=== PATIENT | female | born 1960 | race Caucasian/White ===

== ENCOUNTER 2018-06-23 10:41 | Inpatient (IN) ==
--- NOTE | 2018-05-26 12:30 | PAT Medication Instructions ---
Medication Instructions Date of Service May 26, 2018 Home Medications hydroxychloroquine 200 mg PO BID leflunomide 20 mg PO QAM levetiracetam [Keppra] 750 mg PO QID naproxen sodium [Aleve] 3 tab PO BID potassium chloride 20 meq PO BID pramipexole 0.5 mg PO HS NEEDED spironolactone 50 mg PO QAM ASK your surgeon for instructions naproxen sodium [Aleve] 3 tab PO BID ASK your prescriber and surgeon hydroxychloroquine 200 mg PO BID leflunomide 20 mg PO QAM STOP taking 24 hours before surgery pramipexole 0.5 mg PO TID NEEDED DO NOT take the morning of surgery potassium chloride 20 meq PO BID spironolactone 50 mg PO QAM Take morning of surgery With a small sip of water, OTHERWISE NOTHING TO EAT OR DRINK AFTER MIDNIGHT: levetiracetam [Keppra] 750 mg PO QID Take evening before surgery levetiracetam [Keppra] 750 mg PO QID potassium chloride 20 meq PO BID Other Notes If you have any questions please call us at [phone] or [phone] or [phone] or [phone]
--- NOTE | 2018-05-26 14:35 | Anesthesiology Consultation ---
Date of Service May 26, 2018 Assessment & Plan (1) Encounter for pre-operative examination: Chart Review Chart Review: Acceptable Risk for Surgery and Patient seen in Pre Admission Testing Consults Requested none Teaching & Discussion Pre-Anesthesia Teaching/Discussion Notes: Instructed NPO after midnight before surgery, except medications with 15 cc of water. Medication instructions provided according to the PAT guidelines. History Surgery Operation Date: 06/09/18 07:45 Proposed Procedures p L3-S1 Hardware Removal, L2-L3 Decompression and Fusion - George Cox, Height/Weight Height: 5 ft 5 in Weight: 77.5 kg Allergies Allergy/AdvReac Type Severity Reaction Status Date / Time codeine Allergy Unknown G I UPSET Verified 05/24/18 15:28 cyclobenzaprine Allergy Unknown EXTREME Verified 05/24/18 15:28 DROWSY morphine Allergy Unknown GI upset Verified 05/24/18 15:28 (per PCP note) tramadol Allergy Unknown pruritis Verified 05/24/18 15:28 per PCP note Dust Allergy Unknown DUST,POLLEN-ITCHY Uncoded 05/24/18 15:28 EYES, RUNNY NOSE Medications Home Medications Medication Instructions Recorded Confirmed Last Taken hydroxychloroquine 200 mg PO BID 05/24/18 05/24/18 Unknown leflunomide 20 mg PO QAM 05/24/18 05/24/18 Unknown levetiracetam [Keppra] 750 mg PO QID 05/24/18 05/24/18 Unknown naproxen sodium [Aleve] 3 tab PO BID 05/24/18 05/24/18 Unknown potassium chloride 20 meq PO BID 05/24/18 05/24/18 Unknown pramipexole 0.5 mg PO HS PRN 05/24/18 05/26/18 Unknown spironolactone 50 mg PO QAM 05/24/18 05/24/18 Unknown Past Medical History Medical History Brain aneurysm Being monitored by Neurology in [place] (Dr. Stevens) Chronic back pain ON/OFF RADIATION OF PAIN IN B/L LOWER EXTREMITIES. PT STATES IT HAS IMPROVED SINCE SECOND SURGERY. PAIN IS USUALLY MORE LOCALIZED INTO BACK. Degenerative disc disease Hypokalemia due to loss of potassium PT STATES SHE FOLLOWS WITH [facility] FOR A LOW POTASSIUM LEVEL WITH UNKNOWN ETIOLOGY. PT WAS STARTED ON ALDACTONE AND POTASSIUM SUPPLEMENT FOR TREATMENT. CONTINUES TO MONITOR. Renal cyst FOLLOWED BY [facility]. NO CURRENT INTERVENTION. Rheumatoid arthritis Seizure LAST SEIZURE 2+ YEARS AGO. PT REMAINS ON KEPPRA. 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 Superficial vein thrombosis ~2009 (once only) Past Surgical History Surgical History Fusion of spine x2 2011, 2014. LUMBAR 10/30/14 - MAC #3, ETT #7.0, Grade 1 View History of adenoidectomy History of appendectomy History of bilateral carpal tunnel release History of bilateral tubal ligation History of bowel resection S/T TO DISCOVERY OF A "CLUSTER OF POLYPS" History of cataract surgery B/L History of colonoscopy History of endometrial ablation History of surgery VEIN INJECTIONS FOR VERICOSE VEINS History of tonsillectomy Past Anesthesia History No Hx of Anesthesia Complications and No Family Hx of Anesthesia Complications History of PONV No Motion Sickness Screening History of Motion Sickness: No Social History Smoking Status: Current every day smoker tobacco type: cigarettes Smoking cigarettes per day: HX OF 1 PPD X25 YEARS Do You Dip or Chew Tobacco: No Hx Alcohol Use: No Hx Substance Use: No substance use type: does not use Exercise / Class Metabolic Activity II 4-5 Yardwork/Stairs/Walk up hill (Currently limited due to back pain. Can easily climb FOS without CP or SOB. 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 ) Review of Systems Patient denies chest pain, shortness of breath, dyspnea on exertion, reflux, cough, wheezing, palpitations. +Joint Pain (Back) Physical Exam Vital Signs BP: 116/76 P: 69 R: 16 T: 98.2 SPO2: 96% ENMT Mouth: + dentures (Full set - uppers and lowers ) and + edentulous Thyromental Distance: > or= 3.5 Finger Breadths (3.5) Mallampati Class: I Dentures - Full set - uppers and lowers - wants them to be the last thing taken and then the first thing put back in Neck normal visual inspection and trachea midline Respiratory normal respiratory effort Auscultation: lungs clear to auscultation bilaterally Cardiovascular Rate/Rhythm: regular rate and regular rhythm Heart Sounds: no murmur Vessels: no carotid bruit Neurologic moves all extremities Psychiatric Orientation: alert and oriented x 3 Testing Electrocardiogram Date: 05/26/18 Findings: + NSR @ (66) When compared with EKG from 10/05/14, Non specific T wave abnormality is no longer evident in anterolateral leads. Chest X-Ray Date: 05/26/18 Findings: + cardiomegaly (mild) FINDINGS: Atherosclerosis of the aortic arch. Cardiac silhouette enlarged. Right retrocardiac double density may indicate left atrial enlargement. Lungs mildly hyperinflated. No focal opacity. No pleural effusion or pneumothorax. Degenerative changes of the thoracic spine. Partially visualized lumbar fusion hardware. Upper abdomen normal. IMPRESSION: 1. Mild cardiomegaly. No other convincing evidence of acute cardiopulmonary disease. Cervical Spine Date: 05/26/18 FINDINGS: 3 lateral views of the cervical spine are obtained in the neutral, flexion, and extension positions. No prior studies are for comparison at the time of dictation. The skeletal structures are osteopenic. There is no radiographic evidence of fracture or subluxation on these lateral images. Vertebral body height is maintained throughout the cervical spine. There is minimal retrolisthesis at C3-C4 and C4-C5. Alignment is otherwise preserved. There is no osseous subluxation identified on the flexion/extension views. The atlantodental articulation appears maintained, noting mild productive degenerative change. The spinal laminar line is preserved. The spinous processes are intact. Large anterior osteophytes are seen throughout. There is moderate to advanced disc space narrowing seen at all levels between C3-C4 and C6-C7. Posterior disc osteophyte complexes at these levels likely contribute to mild multilevel acquired compromise of the central canal. The prevertebral soft tissues are normal in appearance. IMPRESSION: 1. No acute bony abnormality is identified involving the cervical spine. 2. Osteopenia and spondylotic change as above. 3. There is no evidence of subluxation on the flexion/extension views. Laboratory Results 05/26/18 14:16 05/26/18 14:16 Blood Type A Positive 05/26/18 14:16 Antibody Screen NEGATIVE 05/26/18 14:16 PT 10.6 Seconds (9.0-12.0) 05/26/18 14:16 INR 1.0 (0.9-1.1) 05/26/18 14:16 APTT 27.1 Seconds (21.0-31.0) 05/26/18 14:16 Urine Color Yellow 05/26/18 14:16 Urine Appearance Clear (Clear) 05/26/18 14:16 Urine pH 5.0 (4.5-7.5) 05/26/18 14:16 Ur Specific Pierz 1.011 (1.000-1.030) 05/26/18 14:16 Urine Protein Negative (Negative) 05/26/18 14:16 Urine Glucose (UA) Negative (Negative) 05/26/18 14:16 Urine Ketones Negative (Negative) 05/26/18 14:16 Urine Nitrite Negative (Negative) 05/26/18 14:16 Ur Leukocyte Esterase Negative (Negative) 05/26/18 14:16
[2018-05-26 15:21] LABS: Basophils # (auto) 0.05 K/uL (0-0.2); Basophils % (auto) 1.2 %; Eosinophils # (auto) 0.18 K/uL (0-0.5); Eosinophils % (auto) 4.2 %; Hematocrit (blood only) 40.9 % (37-47); Hemoglobin 14.1 g/dL (12.0-16.0); Immature Granulocytes # (auto) 0.01 K/uL (0.00-0.02); Immature Granulocytes % (auto) 0.2 %; Lymphocytes # (auto) 1.15 K/uL (1.2-3.4); Lymphocytes % (auto) 27.1 %; Mean Corpuscular Hgb Conc 34.5 g/dL (32-36); Mean Corpuscular Volume 89.5 fL (80-100); Mean Platelet Volume 9.2 fL (7.4-10.4); Monocytes # (auto) 0.58 K/uL (0.11-0.59); Monocytes % (auto) 13.6 %; Neutrophils # (auto) 2.28 K/uL (1.4-6.5); Neutrophils % (auto) 53.7 %; Platelet Count 264 K/uL (130-400); RDW Coefficient of Variation 13.6 % (11.5-14.5); RDW Standard Deviation 44.6 fL (36.4-46.3); Red Blood Count 4.57 M/uL (4.2-5.4); White Blood Count 4.25 K/uL (4.8-10.8)
--- NOTE | 2018-05-26 15:26 | XRay Report ---
XR chest Pre-admission PA/Lat CLINICAL HISTORY: 58 years-old Female presenting with preoperative assessment, asymptomatic. TECHNIQUE: PA and lateral views of the chest were obtained. COMPARISON: 10/05/2014. FINDINGS: Atherosclerosis of the aortic arch. Cardiac silhouette enlarged. Right retrocardiac double density ma y indicate left atrial enlargement. Lungs mildly hyperinflated. No focal opacity. No pleural effusion or pneumothorax. Degenerative changes of the thoracic spine. Partially visualized lumbar fusion hard crabtree. Upper abdomen normal. IMPRESSION: 1. Mild cardiomegaly. No other convincing evidence of acute cardiopulmonary disease. Electronically signed by: Reilly Bullock M.D. 05/26/2018 3:25 PM
[2018-05-26 15:32] LABS: Appearance Urine Clear (Clear); Bilirubin Urine Negative (Negative); Blood Urine Negative (Negative); Color Urine Yellow; Glucose Urine UA Negative (Negative); Ketones Urine Negative (Negative); Leukocyte Esterase Urine Negative (Negative); Nitrite Urine Negative (Negative); Protein Urine Negative (Negative); Specific Gravity Urine 1.011 (1.000-1.030); Urobilinogen Urine Negative (Negative)
[2018-05-26 15:41] LABS: Partial Thromboplastin Time 27.1 Seconds (21.0-31.0); Prothrombin Time 10.6 Seconds (9.0-12.0)
[2018-05-26 15:51] LABS: BUN Creatinine Ratio 14.7 (10-20); Calcium 9.3 mg/dl (8.5-10.1); Creatinine Clr Calc Pharmacy 88.7 ml/min; Est GFR (African American) 107.7; Potassium 4.1 mmol/L (3.5-5.1)
--- NOTE | 2018-05-26 15:57 | XRay Report ---
CERVICAL SPINE 3 VIEWS CLINICAL HISTORY: Rheumatoid arthritis. Preoperative examination. FINDINGS: 3 lateral views of the cervical spine are obtained in the neutral, flexion, and extension p ositions. No prior studies are for comparison at the time of dictation. The skeletal structures are o steopenic. There is no radiographic evidence of fracture or subluxation on these lateral images. Vert ebral body height is maintained throughout the cervical spine. There is minimal retrolisthesis at C3- C4 and C4-C5. Alignment is otherwise preserved. There is no osseous subluxation identified on the fle xion/extension views. The atlantodental articulation appears maintained, noting mild productive degen erative change. The spinal laminar line is preserved. The spinous processes are intact. Large anterio r osteophytes are seen throughout. There is moderate to advanced disc space narrowing seen at all lev els between C3-C4 and C6-C7. Posterior disc osteophyte complexes at these levels likely contribute to mild multilevel acquired compromise of the central canal. The prevertebral soft tissues are normal i n appearance. IMPRESSION: 1. No acute bony abnormality is identified involving the cervical spine. 2. Osteopenia and spondylotic change as above. 3. There is no evidence of subluxation on the flexion/extension views. Dictated: 05/26/2018 3:24 PM Transcribed: 05/26/2018 3:57 PM Yelena [id number] [email or web address] Electronically signed by: Mauricio Rankin M.D. 05/26/2018 3:58 PM
[~2018-06-23 10:41] MED LIST: ACETAMINOPHEN 500 MG TAB PO SCH; CEFAZOLIN 1000MG 1,000 MG/7.5 ML SYR IV SCH; CeleBREX 200 MG CAP PO SCH; GABAPENTIN 300 MG x 2 PO SCH; LR 15ML/HR IV SCH
--- OUTSIDE RECORDS SUMMARY | 2018-06-23 10:45 | External Medical Summary | Continuity of Care Document ---
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) Arthritis, rheumatoid (714.0) (M06.9) Back disorder (724.9) (M53.9) Carpal tunnel syndrome (354.0) (G56.00) Cataract (366.9) (H26.9) Convulsions (780.39) (R56.9) Dermatitis (692.9) (L30.9) Deviated nasal septum (470) (J34.2) Dyslipidemia, goal LDL below 130 (272.4) (E78.5) Female infertility (628.9) (N97.9) Generalized osteoarthritis (715.00) (M15.9) Hypopotassemia (276.8) (E87.6) Restless legs syndrome (333.94) (G25.81) Sensorineural hearing loss (389.10) (H90.5) Sprain of knee and leg (844.9) (S83.90XA) Tobacco use disorder (305.1) (F17.200) Varicose vein of leg (454.9) (I83.90) Hypokalemia (276.8) (E87.6) Renal cyst, right (753.10) (N28.1) Allergies and Adverse Reactions Codeine Derivatives (Allergy) Reaction: Nausea, Vomiting Flexeril TABS (Allergy) Reaction: Other Morphine Derivatives (Allergy) Reaction: Gatrointestinal upset Ultram TABS (Allergy) Reaction: Itching Medications Leflunomide 20 MG Oral Tablet; take 1 tablet by mouth once d aily Refills: 0 levETIRAcetam 750 MG Oral Tablet; TAKE 1 TABLET BY MOUTH 4 T IMES A DAY Refills: 0 Pramipexole Dihydrochloride 0.5 MG Oral Tablet; TAKE 1 TABLET BY MOUTH AT BEDTIME NEEDED Refills: 0 Hydroxychloroquine Sulfate 200 MG Oral T ablet; TAKE 1 TABLET BY MOUTH 2 TIMES A DAY Refills: 0 Potassium Chloride ER 10 MEQ Oral Tablet Extended Release; TAKE 1 TABLET BY MOUTH TWICE DAILY. Jamison Coats Quantity: 60 Refills: 0 Aleve 220 MG Oral Tablet; TAKE 3 TABLETS TWICE DAILY Refills: 0 Spironolactone 100 MG Oral Tablet; TAKE 1 TABLET DAILY. Jamison Siu Start: 21-May-2018 Quantity: 1 30 Tablet Bottle Refills: 3 Procedures Renal Panel Date: 03-Jun-2018 Immunizations Immunizations not documented Family History Father Family history of cardiac disorder (V17.49) (Z82.49) Status: Active Family history of malignant neoplasm (V16.9) (Z80.9) Status: Active Grandfather Family history of cardiac disorder (V17.49) (Z82.49) Status: Active Grandfather Family history of cardiac disorder (V17.49) (Z82.49) Status: Active Family history of congestive heart failure (V17.49) (Z82.49) Status: Active Grandmother Family history of cardiac disorder (V17.49) (Z82.49) Status: Active Family history of colonic polyps (V18.51) (Z83.71) Status: A ctive Family history of cerebrovascular accident (CVA) (V17.1) (Z8 2.3) Status: Active uncle Family history of malignant neoplasm of colon (V16.0) (Z80.0 ) Status: Active Social History - Smoking Status Current every day smoker Plan of Treatment Planned Encounters Appointment; Ely Coats M.D. Start: 02-Jul-2018 15:30 Request Planned Observations Planned Goals not documented Results Renal Panel Laboratory: [facility] [address] [facility] [id number] tel: 01-Jun-2018 10:44 SODIUM 139 mmol/L Range: 136-145 mmol /L POTASSIUM 4.3 mmol/L Range: 3.5-5.1 mmo l/L CHLORIDE 110 mmol/L (above high Range: 98-107 mmol/L threshold) CARBON DIOXIDE 25 mmol/L Range: 21-32 m mol/L ANION GAP 5.0 Range: 3-11 BLOOD UREA NITROGEN 17 mg/dl Range: 7-1 8 mg/dl CREATININE 0.77 mg/dl Range: 0.6-1.2 mg /dl Estimated GFR () 99.3 Co mments: Units: ml/min per 1.73 meters squaredT he estimated GFR (CKD-E PI equation) has not be en validatedfor inpatie nt settings and may not be an accurate reflectiono f renal function in critical ly ill patients or those wi thrapidly changing renal funct ion (e.g. ARNULFO). Estimated GFR (Non-) Com ments: Units: ml/min per 85.7 1.73 meters squaredT he estimated GFR (CKD-E PI equation) has not be en validatedfor inpatie nt settings and may not be an accurate reflectiono f renal function in critical ly ill patients or those wi thrapidly changing renal funct ion (e.g. ARNULFO). BUN/CREATININE RATIO 21.8 (above high Ra nge: 10-20 threshold) GLUCOSE 90 mg/dl Range: 70-99 mg/dl CALCIUM 9.4 mg/dl Range: 8.5-10.1 mg/ dl PHOSPHORUS 2.9 mg/dl Range: 2.5-4.9 mg/ dl ALBUMIN 3.6 {gm/dl} Range: 3.4-5.0 gm/d l Vital Signs 03-Jun-2018 9:53 Systolic 118 mm[Hg] Comments: Location: RUE; Position: Sitting Diastolic 80 mm[Hg] Comments: Location: RUE; Position: Sitting BSA Calculated 1.84 m2 BMI Calculated 28.12 kg/m2 Weight 169 lb Heart Rate 82 /min Comments: Location: R Radial; Encounters Appointment; Ely Coats M.D. 03-Jun-2018 9:45 Encounter Diagnosis: Problem not documented Appointment; Ely Coats M.D. 21-May-2018 10:30 Encounter Diagnosis: Problem not documented Appointment; Ely Coats M.D. 14-May-2018 14:10 Encounter Diagnosis: Problem not documented Appointment; Ely Coats M.D. 02-Jul-2018 15:30 Encounter Diagnosis: Problem not documented
[2018-06-23] MEDS: LR 15ML/HR IV SCH ×2 (11:32→11:50)
[2018-06-23] MEDS ORDERED: ATROPINE SULFATE 0.1 MG/ML 10ML SYR IV PRN (11:38)
[2018-06-23] MEDS ORDERED: ePHEDrine sulfate 50 MG/ML AMP IV PRN (11:38)
--- NOTE | 2018-06-23 11:51 | History & Physical Bridge Note ---
Date of Service June 23, 2018 History & Physical Bridge Note I have examined the patient, reviewed the History & Physical and in the interval since the performance of the History & Physical I have noted the following changes of clinical significance: no changes noted
--- NOTE | 2018-06-23 11:53 | History & Physical Report ---
Date of Service June 23, 2018 Assessment & Plan (1) Lumbar stenosis with neurogenic claudication: Removal of instrumentation L3-S1 decompression fusion L2-L3 Present on Admission?: Yes History of Present Illness Chief Complaint: Back and leg pain Primary Care Provider: Kiana Ortiz MD Presents with chronic persistent back and leg pain. After failing extensive course of nonoperative care she is here for surgical intervention. Allergies Allergy/AdvReac Type Severity Reaction Status Date / Time codeine Allergy Unknown G I UPSET Verified 06/23/18 11:01 cyclobenzaprine Allergy Unknown EXTREME Verified 06/23/18 11:01 DROWSY morphine Allergy Unknown GI upset Verified 06/23/18 11:01 (per PCP note) tramadol Allergy Unknown pruritis Verified 06/23/18 11:01 per PCP note Dust Allergy Unknown DUST,POLLEN-ITCHY Uncoded 06/23/18 11:01 EYES, RUNNY NOSE Home Medications Home Medications Medication Instructions Recorded Confirmed Type hydroxychloroquine 200 mg PO BID 05/24/18 06/23/18 History leflunomide 20 mg PO QAM 05/24/18 06/23/18 History levetiracetam [Keppra] 750 mg PO QID 05/24/18 06/23/18 History naproxen sodium [Aleve] 3 tab PO BID 05/24/18 06/23/18 History potassium chloride 20 meq PO BID 05/24/18 06/23/18 History pramipexole 0.5 mg PO HS PRN 05/24/18 06/23/18 History spironolactone 50 mg PO QAM 05/24/18 06/23/18 History Past Med/Surg History Social History Preferred Language: Polish Communication Ability: Effective Bobbin Collector Required: No Beliefs That Will Affect Care: None Current Living Situation: Spouse Other Information That Helps Us Care for You: No Feels Safe at Home: Yes Safety Concerns: Feels Safe At This Time Smoking Status: Current every day smoker Tobacco Type: cigarettes Cigarettes Per Day: HX OF 1 PPD X25 YEARS Do You Dip or Chew Tobacco: No Second Hand Exposure: No Tobacco Cessation Education Requested by Patient: No Hx Alcohol Use: No Hx Substance Use: No Physical Exam Vital Signs (Past 24 Hours): Last Vital Signs Temp 36.8 C 06/23/18 11:02 Pulse 79 06/23/18 11:02 Resp 20 06/23/18 11:02 BP 109/68 06/23/18 11:02 Pulse Ox 97 06/23/18 11:02 Physical Exam: Patient is neurologically intact to testing lower extremities but no obvious distress.
[2018-06-23] MEDS ORDERED: BACITRACIN INJ 50,000 UNIT VIAL ONE (12:04)
[2018-06-23] MEDS ORDERED: BUPIVACAINE/EPINEPHRINE 0.5% MPF 1:200,000 30 ML VIAL ONE (12:04)
[2018-06-23] MEDS ORDERED: NEOSTIGMINE METHYLSULFATE 1 MG/ML 10ML VIAL ONE (12:09)
[2018-06-23] MEDS ORDERED: GLYCOPYRROLATE 0.2 MG/ML VIAL ONE (12:09)
[2018-06-23] MEDS ORDERED: fentaNYL citrate 100 MCG/2 ML VIAL ONE ×2 (12:09→13:56)
[2018-06-23] MEDS ORDERED: LIDOCAINE HCL 2% 2 ML VIAL/AMP(20MG/ML) INFIL ONE (12:09)
[2018-06-23] MEDS ORDERED: DEXAMETHASONE SOD INJ 4 MG/ML VIAL ONE (12:09)
[2018-06-23] MEDS ORDERED: PROPOFOL IV EMULSION 10 MG/ML 20 ML VIAL IV ONE (12:09)
[2018-06-23] MEDS ORDERED: ROCURONIUM BROMIDE 10 MG/ML 5 ML VIAL ONE (12:09)
[2018-06-23] MEDS ORDERED: ONDANSETRON INJ 2 MG/ML 2 ML VIAL ONE (12:09)
[2018-06-23] MEDS ORDERED: MIDAZOLAM HCL 1 MG/ML 2ML VIAL ONE (12:09)
[2018-06-23] MEDS ORDERED: CEFAZOLIN 1000MG 1,000 MG/7.5 ML SYR IV ONE (12:48)
[2018-06-23] MEDS ORDERED: CEFAZOLIN 250 MG/ML 1 GM VIAL ONE (12:49)
[2018-06-23] MEDS ORDERED: FLOSEAL HEMOSTATIC MATRIX 10ML TOP ONE (13:09)
--- NOTE | 2018-06-23 14:16 | Operative Report ---
Post Operative Report Pre & Post Diagnosis Operation Date: 06/23/18 12:05 Pre-Op Diagnosis: Lumbar stenosis with neurogenic claudication Post-Op Diagnosis: Lumbar stenosis with neurogenic claudication Procedure Operation Date: 06/23/18 12:05 Actual Procedures #1 removal of posterior segmental instrumentation L3-S1. #2 expiration of fusion L3-S1 per #3 lumbar decompression with bilateral medial facetectomies and foraminotomies L1-L2 3. #4 posterior spinal fusion L2-3. #5 placement posterior instrumentation L2-3. #6 interbody fusion L2-3. #7 placement of peek cage 9 x 22 mm L2-3. #8 spent of local autograft in the posterior lateral gutters per #9 placement infuse collagen sponge bone mass graft in the posterior lateral gutters and ostial amp in the interbody space. Surgeon George Cox, [employer] Incident Responder Kymberly Pérez Estimated Blood Loss 100 Findings Consistent with Post-Op Diagnosis Specimens None Indications This is a 58-year-old female well-known to me that presents with the above- mentioned diagnosis. After failing extensive course of nonoperative care she is here for the above-mentioned surgery. Description of Procedure Patient was met with identified and informed consent obtained. Patient was then taken to the operative suite underwent intubation and placed in a prone position the Andrea table on top of the Zachary frame. All bony prominences well-padded eyes inspected to ensure no external pressure placed upon the peer at this point the lumbar spine was prepped and draped in a normal sterile fashion. Sharp dissection with the assistance of Bovie cautery was performed down to and exposing the lamina transverse processes of L2 and the instrumentation at L3-L4 and S1 levels bilaterally. Then proceed remove the hardware bilaterally explore the fusion mass noting to be intact. Then performed a complete laminectomy of L2 partial laminectomy fill one including bilateral medial facetectomies and foraminotomies addressing severe stenosis. Pedicle screws were then placed in L2 and L3 bilaterally with assistance of fluoroscopy and by way of a transforaminal approach and left complete discectomy was performed in pledget created to subcortical bleeding bone and a 9 x 22 mm peek cage filled with osteo-amp bone graft tapped in position. The rods were then locked in final position bilaterally. Transverse processes of L2 and L3 burred to subcortical bleeding bone. Infuse collagen sponge mass graft local autograft placed in the posterior lateral gutters. 15 round DESHAWN drain inserted. The incision was then closed with 1 Vicryl fascia 2-0 Vicryl subcutaneously and 4-0 Monocryl for final skin closure. Steri-Strip sterile dressings placed. Patient will continue to PACU stable condition. Please note Kymberly Pérez present at the entire procedure involved the patient positioning closure. Lastly spinal cord monitoring was utilized throughout the procedure and no changes were noted. I attest to the content of the Intraoperative Record and any orders documented therein. Any exceptions are noted below.
--- NOTE | 2018-06-23 14:42 | Fluoroscopy Report ---
FL lumbar spine 2-3V CLINICAL HISTORY: L3-S1 HARDWARE REMOVAL, L2-L3 DECOM/FUSION COMPARISON STUDY: 10/30/2014 FLUOROSCOPY TIME: The second. NUMBER OF FLUOROSCOPIC IMAGES: 2 FINDINGS: There is been interval removal of the L4, and probably the S1 pedicle screws. There is evid ence for interval discectomy and interbody fusion at the L2-3 level. There are L2 and L3 pedicle scre ws with adjoining spinal rods. There is minimal retrolisthesis of L2 on L3. IMPRESSION: Postsurgical changes as described above. Electronically signed by: Diego Spangler M.D. 06/23/2018 2:41 PM
[2018-06-23] MEDS: HYDROmorphone INJ 1 MG/ML SYRINGE IV PRN ×4 (14:52→15:12)
--- NOTE | 2018-06-23 15:55 | Anesthesiology Progress Note ---
Date of Service June 23, 2018 Anesthesia Post Procedure Vital Signs Vital Signs: Temp Pulse Resp BP Pulse Ox 06/23/18 15:40 57 L 16 101/63 93 06/23/18 15:25 36.5 C 58 L 16 119/71 94 06/23/18 15:15 59 L 16 125/71 94 06/23/18 15:05 69 16 141/82 H 96 06/23/18 14:55 66 16 128/75 99 06/23/18 14:45 70 16 128/82 99 06/23/18 14:35 36.1 C L 83 16 119/71 99 06/23/18 11:02 36.8 C 79 20 109/68 97 Pain Intensity Medial Back: Pain Intensity: 2 Transfer of Care Handoff Completed per policy Notes Mental Status: alert / awake / arousable Patient Amnestic to Procedure: Yes Nausea / Vomiting: adequately controlled Pain: adequately controlled Airway Patency, RR, SpO2: stable & adequate BP & HR: stable & adequate Hydration State: stable & adequate Anesthetic Complications: no major complications apparent
[2018-06-23] MEDS ORDERED: ALUMINUM/MAGNESIUM SUSP 30 ML UDC PO PRN (16:22)
[2018-06-23] MEDS ORDERED: OXYCODONE HCL IR 5 MG TAB (IMMEDIATE RELEASE) PO PRN (16:22)
[2018-06-23] MEDS ORDERED: FAMOTIDINE 20 MG TAB PO PRN (16:22)
[2018-06-23] MEDS ORDERED: PROMETHAZINE HCL 12.5 MG in SODIUM CHLORIDE 0.9% 50 ML IV PRN (16:22)
[2018-06-23] MEDS ORDERED: DO NOT ADMINISTER FLU VACCINE PRN (16:22)
[2018-06-23] MEDS ORDERED: HYDROmorphone INJ 0.5 MG/0.5 ML SYR IV PRN (16:22)
[2018-06-23] MEDS ORDERED: ACETAMINOPHEN 1,000 MG/100 ML VIAL IV PRN (16:22)
[2018-06-23] MEDS ORDERED: LORazepam 0.5 MG TAB PO PRN (16:22)
[2018-06-23] MEDS ORDERED: MAGNESIUM HYDROXIDE SUSP 30 ML UDC PO PRN (16:22)
[2018-06-23] MEDS ORDERED: ONDANSETRON 4 MG TAB PO PRN (16:22)
[2018-06-23] MEDS ORDERED: PRAMIPEXOLE DIHYDROCHLO 0.5 MG TAB PO PRN (16:22)
[2018-06-23] MEDS ORDERED: LORazepam 0.5 MG/1 ML VIAL IV PRN (16:22)
[2018-06-23] MEDS ORDERED: DO NOT ADMINISTER PNEUMOCOCCAL VACCINE PRN (16:22)
[2018-06-23] MEDS ORDERED: BISACODYL 10 MG SUPP PR PRN (16:22)
[2018-06-23] MEDS ORDERED: METOCLOPRAMIDE HCL INJ 5 MG/ML 2 ML VIAL IV PRN (16:22)
[2018-06-23] MEDS ORDERED: ONDANSETRON INJ 2 MG/ML 2 ML VIAL IV PRN (16:22)
[2018-06-23] MEDS ORDERED: SOD PHOSPHATE/SOD BIPHOSPHATE ENEMA 132 ML BTL PR PRN (16:22)
--- NOTE | 2018-06-23 17:16 | Consultation ---
Date of Consultation June 23, 2018 Assessment & Plan (1) Lumbar stenosis with neurogenic claudication: S/P L3-S1 hardware removal and L2-[address] lumbar decomp[address] fusion by Dr. Cox POD #0 EBL 100 mL Patient tolerated procedure well Pain/wound management per Ortho Activity and therapies as directed by Ortho VTE prophylaxis per Ortho Monitor CBC for ABL anemia (2) Seizure: Last seizure greater than 2 years ago No seizure-like activity Continue Keppra (3) Rheumatoid arthritis: Continue Plaquenil and leflunomide (4) Hypokalemia: Continue Aldactone and KCl supplementation Monitor BMP, preop K 4.3 Patient follows [facility] nephrology (5) Chronic back pain: s/p lumbar fusion/decompression Follows pain management ortho for inpatient pain control (6) Tobacco abuse: Encourage smoking cessation Offered nicotine patch but declined (7) DVT prophylaxis: SCDs, per Ortho Disposition: Per primary Follow-up: PCP Dr. Kiana Ortiz Patient was seen and examined in collaboration with Dr. Bradshaw, please see addendum Starting 06/24/18 patient will be under the care of Dr. Mitchell Thank you for this consultation. We will follow the patient with you during their hospital stay. You can reach a member of the [facility] Hospitalist Team 08/09 via pager @ [phone]. Supervising Physician Co-Signing Physician Notes I have seen and examined the patient and have discussed the case with the provider above. I agree with the assessment and plan as stated with the following exceptions. Ms. Faustin is excited that her nerve pain is resolved and has ambulated some around the hallways post-op today. Her pain is controlled and she denies any acute issues. Exam was within normal limits, and she is hemodynamically stable. Cont home meds as above. DO Augustine History of Present Illness Requesting Physician: Dr. Cox Reason for Consultation: Postoperative medical management Attending Physician: George Cox DO History of Present Illness This is a 58-year-old female who has a significant PMH of seizure disorder, rheumatoid arthritis, HLD, tobacco abuse, hypokalemia, RLS, right ICA aneurysm follows [facility] surgery who presents to [facility] for elective lumbar procedure by Dr. Cox. Patient has known history of lumbar spinal stenosis with neurogenic claudication. She has undergone 2 prior lumbar surgeries. She presents today for removal of hardware L3-S1 and L2-3 decompression fusion. She tolerated the procedure well and is complaining of lumbar incisional discomfort. She denies any fever, chills, sweats, lightheadedness, dizziness, chest pain, shortness of breath palpitations, nausea, vomiting, diarrhea, abdominal pain. She currently has a Piper catheter in place. She has not passed gas. She complains of being "drowsy from surgery. Has not had anything to eat or drink since surgery but overall feels she has a good appetite. Allergies Allergy/AdvReac Type Severity Reaction Status Date / Time house dust Allergy Intermediate DUST,POLLEN-ITCHY Verified 06/23/18 18:53 EYES, RUNNY NOSE codeine AdvReac Mild G I UPSET Verified 06/23/18 18:53 cyclobenzaprine AdvReac Mild EXTREME Verified 06/23/18 18:53 DROWSY morphine AdvReac Mild GI upset Verified 06/23/18 18:53 (per PCP note) tramadol AdvReac Mild pruritis Verified 06/23/18 18:53 per PCP note Home Medications Home Medications Medication Instructions Recorded Confirmed Type hydroxychloroquine 200 mg PO BID 05/24/18 06/23/18 History leflunomide 10 mg PO QAM 05/24/18 06/23/18 History levetiracetam [Keppra] 750 mg PO QID 05/24/18 06/23/18 History naproxen sodium [Aleve] 3 tab PO BID 05/24/18 06/23/18 History potassium chloride 20 meq PO BID 05/24/18 06/23/18 History pramipexole 0.5 mg PO HS PRN 05/24/18 06/23/18 History spironolactone 50 mg PO QAM 05/24/18 06/23/18 History Patient History Medical History Superficial vein thrombosis ~2009 (once only) Seizure LAST SEIZURE 2+ YEARS AGO. PT REMAINS ON KEPPRA. 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 Chronic back pain ON/OFF RADIATION OF PAIN IN B/L LOWER EXTREMITIES. PT STATES IT HAS IMPROVED SINCE SECOND SURGERY. PAIN IS USUALLY MORE LOCALIZED INTO BACK. Degenerative disc disease Renal cyst FOLLOWED BY [facility] NEPHRO. NO CURRENT INTERVENTION. Hypokalemia due to loss of potassium PT STATES SHE FOLLOWS WITH [facility] NEPHROLOGY FOR A LOW POTASSIUM LEVEL WITH UNKNOWN ETIOLOGY. PT WAS STARTED ON ALDACTONE AND POTASSIUM SUPPLEMENT FOR TREATMENT. CONTINUES TO MONITOR. Rheumatoid arthritis Brain aneurysm Being monitored by Neurology in [place] (Dr. Stevens) Right ICA aneurysm gets yearly MRAs Surgical History Fusion of spine x2 2011, 2014. LUMBAR //15 - MAC #3, ETT #7.0, Grade 1 View History of surgery VEIN INJECTIONS FOR VERICOSE VEINS History of bowel resection S/T TO DISCOVERY OF A "CLUSTER OF POLYPS" History of colonoscopy History of appendectomy History of endometrial ablation History of bilateral tubal ligation History of adenoidectomy History of tonsillectomy History of cataract surgery B/L History of bilateral carpal tunnel release Social History Preferred Language: Maori Communication Ability: Effective Account Retention Representative Required: No Beliefs That Will Affect Care: None Current Living Situation: Spouse Other Information That Helps Us Care for You: No Feels Safe at Home: Yes Safety Concerns: Feels Safe At This Time Smoking Status: Current every day smoker Tobacco Type: cigarettes Cigarettes Per Day: HX OF 1 PPD X25 YEARS Do You Dip or Chew Tobacco: No Second Hand Exposure: No Tobacco Cessation Education Requested by Patient: No Hx Alcohol Use: No Hx Substance Use: No Review of Systems Review of Systems: As noted per HPI, 10 systems reviewed and negative unless noted above. Physical Exam Physical Exam: Gen: WD/WN, F, NAD, sitting up in bed, pleasant, conversing easily Head: Normocephalic, Atraumatic Eyes: Sclera normal, no conjunctival injection, PERRLA, EOMI ENT: Gross hearing intact, normal pharynx, mucous membranes moist Neck: supple, no adenopathy, No JVD, no bruit, Resp: Clear to auscultation b/l, no wheeze, rales, rhonchi. Normal insp/exp effort, no accessory muscle use, on O2 via NC CV: Regular rate, regular rhythm, no murmur, rub, gallop, or ectopy Abd: +BS x 4, soft, nontender, nondistended Musculoskeletal: moves extremities active rom x 4, strength intact, good gem carver strength Extremities: No edema bilaterally, SCDS in place Skin: warm, moist, no rash, negative turgor, cap refill < 2sec, Lumbar dressing CDI, DESHAWN Drain with serosanginous output Neuro: Alert and oriented x 3, speech normal, good mood/affect, cran nerve 2-12 intact grossly : +piper draining clear yellow urine Results & Data Vital Signs (Past 12 Hours) Vital Signs Temp Pulse Pulse Resp BP BP Pulse Ox 06/23/18 16:24 36.5 C 60 16 110/68 96 06/23/18 16:10 56 L 14 100/58 L 94 06/23/18 15:55 56 L 16 98/53 L 93 06/23/18 15:40 57 L 16 101/63 93 06/23/18 15:25 36.5 C 58 L 16 119/71 94 06/23/18 15:15 59 L 16 125/71 94 06/23/18 15:05 69 16 141/82 H 96 06/23/18 14:55 66 16 128/75 99 06/23/18 14:45 70 16 128/82 99 06/23/18 14:35 36.1 C L 83 16 119/71 99 06/23/18 11:02 36.8 C 79 20 109/68 97 Laboratory Results Preoperative lab work includes: CBC hemoglobin 14.1, hematocrit 40.9, WBC 4, platelet 264 BMP: Sodium 139, potassium 4.3, BUN 17, creatinine 0.77, glucose 90 Diagnostic Findings Chest x-ray: IMPRESSION: 1. Mild cardiomegaly. No other convincing evidence of acute cardiopulmonary disease. Last echocardiogram 06/18/2011: LVEF 55 to 59% Medications Administered Discontinued Medications Acetaminophen (Tylenol) 1,000 mg PO PREOP MARCELA Stop: 06/23/18 18:00 Last Admin: 06/23/18 11:31 Dose: 1,000 mg Documented by: [id number] Bacitracin (Bacitracin) Confirm Administered Dose 50,000 units .ROUTE .STK-MED ONE Stop: 06/23/18 12:05 Last Admin: 06/23/18 13:08 Dose: 50,000 units Documented by: [id number] Bupivacaine HCl/Epinephrine Bitart (Sensorcaine/Epinephrine 0.5% Mpf 1:200,000) Confirm Administered Dose 30 ml .ROUTE .STK-MED ONE Stop: 06/23/18 12:05 Last Admin: 06/23/18 13:09 Dose: 30 ml Documented by: [id number] Celecoxib (Celebrex) 200 mg PO PREOP MARCELA Stop: 06/23/18 18:00 Last Admin: 06/23/18 11:31 Dose: 200 mg Documented by: [id number] Gabapentin (Neurontin) 600 mg PO PREOP MARCELA Stop: 06/23/18 18:00 Last Admin: 06/23/18 11:30 Dose: 600 mg Documented by: [id number] Hydromorphone HCl (Dilaudid) 0.25 mg IV Q5M PRN PRN Reason: PACU Use Only-Pain Stop: 06/23/18 16:39 Last Admin: 06/23/18 15:12 Dose: 0.25 mg Documented by: [id number] Admin: 06/23/18 15:06 Dose: 0.25 mg Documented by: [id number] Admin: 06/23/18 15:01 Dose: 0.25 mg Documented by: [id number] Admin: 06/23/18 14:52 Dose: 0.25 mg Documented by: [id number] Lactated Ringer's (Lr) 1,000 mls @ 15 mls/hr IV .Q24H MARCELA Stop: 06/24/18 05:59 Last Infusion: 06/23/18 12:20 Dose: 0 mls/hr Documented by: [id number] Admin: 06/23/18 11:50 Dose: 15 mls/hr Documented by: [id number] Cefazolin Sodium (Ancef 1000mg) 1,000 mg in 7.5 mls @ 2.5 mls/min IV PREOP MARCELA; Protocol Stop: 06/23/18 18:00 Last Admin: 06/23/18 12:20 Dose: 2.5 mls/min Documented by: [id number] Cefazolin Sodium (Ancef 1000mg) 1,000 mg in 7.5 mls @ 2.5 mls/min IV ONCE ONE Stop: 06/23/18 12:50 Last Admin: 06/23/18 12:45 Dose: 2.5 mls/min Documented by: [id number] Miscellaneous (Floseal Hemostatic Matrix 10ml) 10 ml TOP ONCE ONE Stop: 06/23/18 13:10 Last Admin: 06/23/18 14:13 Dose: 18 ml Documented by: [id number]
[2018-06-23] MEDS: levETIRAcetam 250 MG TAB PO SCH ×2 (17:42→21:04)
[2018-06-23] MEDS: LACTATED RINGER'S 1,000 ML IV SCH ×2 (17:43→23:48)
[2018-06-23] MEDS: KETOROLAC TROMETHAMINE 15 MG/ML VIAL IV SCH (20:45)
[2018-06-23] MEDS: DOCUSATE SODIUM/SENNA 50/8.6MG TAB PO SCH (20:49)
[2018-06-23] MEDS: HYDROXYCHLOROQUINE SULFATE 200 MG TAB PO SCH (20:50)
[2018-06-23] MEDS: POTASSIUM CHLORIDE 20 MEQ TABCR PO SCH (20:51)
[2018-06-23] MEDS: CEFAZOLIN 2000MG 2,000 MG/15 ML SYR IV SCH (21:04)
[2018-06-23] MEDS ORDERED: Nursing to Pharmacy Communication ONE (21:06)
[2018-06-24] MEDS: KETOROLAC TROMETHAMINE 15 MG/ML VIAL IV SCH ×3 (02:17→13:24)
[2018-06-24] MEDS: CEFAZOLIN 2000MG 2,000 MG/15 ML SYR IV SCH (05:30)
[2018-06-24] MEDS: POLYETHYLENE (MIRALAX) 17 GM PACK PO SCH ×4 (05:30→23:19)
[2018-06-24 06:15] LABS: Basophils # (auto) 0.01 K/uL (0-0.2); Basophils % (auto) 0.1 %; Hematocrit (blood only) 32.4 % (37-47); Hemoglobin 11.8 g/dL (12.0-16.0); Immature Granulocytes # (auto) 0.03 K/uL (0.00-0.02); Immature Granulocytes % (auto) 0.3 %; Lymphocytes # (auto) 0.88 K/uL (1.2-3.4); Lymphocytes % (auto) 9.8 %; Mean Corpuscular Hgb Conc 36.4 g/dL (32-36); Mean Corpuscular Volume 85.3 fL (80-100); Mean Platelet Volume 8.3 fL (7.4-10.4); Monocytes % (auto) 14.5 %; Neutrophils # (auto) 6.73 K/uL (1.4-6.5); Neutrophils % (auto) 75.3 %; Platelet Count 239 K/uL (130-400); RDW Coefficient of Variation 13.4 % (11.5-14.5); RDW Standard Deviation 41.7 fL (36.4-46.3); White Blood Count 8.95 K/uL (4.8-10.8)
[2018-06-24 06:52] LABS: BUN Creatinine Ratio 17.1 (10-20); Calcium 8.6 mg/dl (8.5-10.1); Creatinine Clr Calc Pharmacy 87.5 ml/min; Est GFR (Non-African American) 91.4; Potassium 4.2 mmol/L (3.5-5.1)
--- NOTE | 2018-06-24 08:04 | Anesthesiology Progress Note ---
Date of Service June 24, 2018 Anesthesia Post Procedure Vital Signs Vital Signs: Temp Pulse Pulse Pulse Resp BP BP 06/24/18 07:12 36.7 C 59 L 16 92/54 L 06/24/18 03:39 36.7 C 64 14 107/62 06/23/18 23:35 36.4 C L 56 L 14 96/58 L 06/23/18 21:12 68 115/72 06/23/18 19:30 36.6 C 60 16 95/57 L 06/23/18 18:22 36.6 C 59 L 16 95/60 L 06/23/18 16:50 36.4 C L 66 16 97/60 L 06/23/18 16:24 36.5 C 60 16 110/68 06/23/18 16:10 56 L 14 100/58 L 06/23/18 15:55 56 L 16 98/53 L 06/23/18 15:40 57 L 16 101/63 06/23/18 15:25 36.5 C 58 L 16 119/71 06/23/18 15:15 59 L 16 125/71 06/23/18 15:05 69 16 141/82 H 06/23/18 14:55 66 16 128/75 06/23/18 14:45 70 16 128/82 06/23/18 14:35 36.1 C L 83 16 119/71 06/23/18 11:02 36.8 C 79 20 109/68 Pulse Ox 06/24/18 07:12 92 06/24/18 03:39 92 06/23/18 23:35 94 06/23/18 21:12 06/23/18 19:30 97 06/23/18 18:22 96 06/23/18 16:50 96 06/23/18 16:24 96 06/23/18 16:10 94 06/23/18 15:55 93 06/23/18 15:40 93 06/23/18 15:25 94 06/23/18 15:15 94 06/23/18 15:05 96 06/23/18 14:55 99 06/23/18 14:45 99 06/23/18 14:35 99 06/23/18 11:02 97 Pain Intensity Medial Back: Pain Intensity: 1 Notes Mental Status: alert / awake / arousable and participated in evaluation Patient Amnestic to Procedure: Yes Nausea / Vomiting: adequately controlled Pain: adequately controlled Airway Patency, RR, SpO2: stable & adequate BP & HR: stable & adequate Hydration State: stable & adequate Anesthetic Complications: no major complications apparent and Pt Satisfied with anesthetic care
--- NOTE | 2018-06-24 08:28 | Orthopedic Progress Note ---
Date of Service June 24, 2018 Assessment & Plan (1) Lumbar stenosis with neurogenic claudication: This time we will continue physical therapy advance her bowel regimen anticipate discharge home next few days. Present on Admission?: Yes Subjective Back pain is controlled leg symptoms markedly improved. Physical Exam Physical Exam: Patient has good strength testing appears comfortable. Results & Data Vital Signs (Past 12 Hours) Vital Signs Temp Pulse Pulse Resp BP BP Pulse Ox 06/24/18 07:12 36.7 C 59 L 16 92/54 L 92 06/24/18 03:39 36.7 C 64 14 107/62 92 06/23/18 23:35 36.4 C L 56 L 14 96/58 L 94 06/23/18 21:12 68 115/72
[2018-06-24] MEDS ORDERED: SPIRONOLACTONE 25 MG TAB PO SCH (09:00)
[2018-06-24] MEDS ORDERED: NON-FORMULARY MEDICATION (Leflunomide 20 MG) PO SCH (09:00)
[2018-06-24] MEDS: POTASSIUM CHLORIDE 20 MEQ TABCR PO SCH ×2 (09:22→20:57)
[2018-06-24] MEDS: LEFLUNOMIDE 10 MG TAB PO SCH (09:22)
[2018-06-24] MEDS: HYDROXYCHLOROQUINE SULFATE 200 MG TAB PO SCH ×2 (09:22→20:57)
[2018-06-24] MEDS: levETIRAcetam 250 MG TAB PO SCH ×4 (09:23→20:56)
--- NOTE | 2018-06-24 09:50 | Hospitalist Progress Note ---
Date of Service June 24, 2018 Assessment & Plan (1) Lumbar stenosis with neurogenic claudication: S/P L3-S1 hardware removal and L2-3 lumbar decompression fusion by Dr. Cox POD #1 EBL 100 mL; DESHAWN drain 430ml Patient tolerated procedure well Pain/wound management per Ortho Activity and therapies as directed by Ortho VTE prophylaxis per Ortho Monitor CBC for ABL anemia (2) Acute blood loss anemia: H/H 11.8 and 32.4 pre op 14.1/40.9 monitor cbc (3) Seizure: Last seizure greater than 2 years ago No seizure-like activity Continue Keppra (4) Rheumatoid arthritis: Continue Plaquenil and leflunomide (5) Hypokalemia: Hold aldactone today given SBP < 100 but continue KCl supplementation; re eval in a.m. restarting aldactone K today 4.2 monitor bmp Patient follows [facility] nephrology (6) Chronic back pain: s/p lumbar fusion/decompression Follows pain management ortho for inpatient pain control (7) Tobacco abuse: Encourage smoking cessation Offered nicotine patch but declined (8) DVT prophylaxis: SCDs, per Ortho Disposition: Per primary Follow-up: PCP Dr. Kiana Ortiz Patient was seen and examined in collaboration with Dr. Mitchell, please see addendum Thank you for this consultation. We will follow the patient with you during their hospital stay. You can reach a member of the [facility] via pager @ [phone]. Supervising Physician Co-Signing Physician Notes Patient is seen and examined at bedside. She states pain at the surgical site is controlled. Prefers to have Piper catheter removed. Ambulating in hallways. Denies any chest pain, shortness of breath, dizziness. Offers no other complaints. S/P Lumbar decompression fusion POD #1.. Monitor for postop anemia, continue bowel regimen to prevent constipation, DVT prophylaxis and activity as per primary team. DC piper as per patient's request. Pain is controlled. Blood pressure improved. Agree with holding Aldactone for now. Monitor potassium levels. On exam patient is moderately built and nourished, no apparent distress, lungs are clear to auscultation, back-surgical site in dressing, + drain, abdomen soft nontender, grossly no focal neurological deficits, no pedal edema. I personally reviewed the record. Patient is interviewed and examined at bedside. Patient's care is coordinated with Janeth Boogie PA-C. Please refer to the documentation above for details of patient's presentation and for discussion of other issues. Subjective Patient was seen and examined in room 314. S/P Lumbar decompression fusion L2-3 and removal of hardware POD # 1. Feels well this morning. Ready to get up and moving with therapy. Denies f/c/s, dizziness, lightheaded, chest pain, sob, n/v/d. Tolerating oral intake. Anxious to get catheter removed. Complains of incisional pain but no significant back pain or radiculopathy. Review of Systems Review of Systems: As noted per HPI, 10 systems reviewed and negative unless noted above. Physical Exam Physical Exam: Gen: WD/WN, F, lying in bed, pleasant, NAD, A&O x3 HEENT: Normocephalic, atraumatic, conjunctivae moist, sclerae anicteric, mucous membranes moist. Lung: Clear to Auscultation bilaterally, no wheezes/rales/rhonchi Heart: Regular rate, regular rhythm, no murmurs, rubs, or gallops Abdomen: Soft, NT, ND +BS x 4 Extremities: No edema Skin: Warm, no rash, negative turgor, lumbar dressing CDI, DESHAWN drain in tact draining approp : +Piper cath with yellow urine noted Results & Data Vital Signs (Past 12 Hours) Vital Signs Temp Pulse Resp BP BP Pulse Ox 06/24/18 09:40 97/60 L 06/24/18 07:12 36.7 C 59 L 16 92/54 L 92 06/24/18 03:39 36.7 C 64 14 107/62 92 06/23/18 23:35 36.4 C L 56 L 14 96/58 L 94 Laboratory Results Short CBC 06/24/18 Range/Units 06:00 WBC 8.95 (4.8-10.8) K/uL Hgb 11.8 L (12.0-16.0) g/dL Hct 32.4 L (37-47) % Plt Count 239 (130-400) K/uL BMP 06/24/18 06:00 Sodium 137 Potassium 4.2 Chloride 107 Carbon Dioxide 26 BUN 12 Creatinine 0.73 Glucose 102 H Calcium 8.6
[2018-06-24] MEDS: DOCUSATE SODIUM/SENNA 50/8.6MG TAB PO SCH (20:57)
[2018-06-24] MEDS: ACETAMINOPHEN 500 MG TAB PO PRN (20:59)
[2018-06-25] MEDS: POLYETHYLENE (MIRALAX) 17 GM PACK PO SCH ×2 (05:45→12:06)
[2018-06-25 06:13] LABS: Hematocrit (blood only) 32.4 % (37-47); Hemoglobin 11.3 g/dL (12.0-16.0); Mean Corpuscular Hgb Conc 34.9 g/dL (32-36); Platelet Count 219 K/uL (130-400); RDW Coefficient of Variation 13.7 % (11.5-14.5); RDW Standard Deviation 44.3 fL (36.4-46.3); Red Blood Count 3.68 M/uL (4.2-5.4); White Blood Count 5.71 K/uL (4.8-10.8)
[2018-06-25 06:42] LABS: Calcium 8.3 mg/dl (8.5-10.1); Creatinine Clr Calc Pharmacy 87.5 ml/min; Est GFR (Non-African American) 91.4; Potassium 4.2 mmol/L (3.5-5.1)
[2018-06-25] MEDS: LEFLUNOMIDE 10 MG TAB PO SCH (08:25)
[2018-06-25] MEDS: levETIRAcetam 250 MG TAB PO SCH ×2 (08:26→12:42)
[2018-06-25] MEDS: HYDROXYCHLOROQUINE SULFATE 200 MG TAB PO SCH (08:30)
[2018-06-25] MEDS: POTASSIUM CHLORIDE 20 MEQ TABCR PO SCH (08:31)
[2018-06-25] MEDS: ACETAMINOPHEN 500 MG TAB PO PRN (08:34)
--- NOTE | 2018-06-25 09:55 | Hospitalist Progress Note ---
Date of Service June 25, 2018 Assessment & Plan (1) Lumbar stenosis with neurogenic claudication: S/P L3-S1 hardware removal and L2-3 lumbar decompression fusion by Dr. Cox POD #2 EBL 100 mL; DESHAWN drain 620ml Patient tolerated procedure well Pain/wound management per Ortho Activity and therapies as directed by Ortho VTE prophylaxis per Ortho Monitor CBC for ABL anemia (2) Acute blood loss anemia: H/H 11.3 and 32.4 pre op 14.1/40.9 monitor cbc (3) Seizure: Last seizure greater than 2 years ago No seizure-like activity Continue Keppra (4) Rheumatoid arthritis: Continue Plaquenil and leflunomide (5) Hypokalemia: Hold aldactone today given SBP < 100 but continue KCl supplementation; re eval in a.m. restarting aldactone If pt to be discharged today educated patient on monitoring blood pressure in the morning. If consistently < 100 would follow up with PCP before resuming aldactone K today 4.2 monitor bmp [place] [facility] [place] (6) Chronic back pain: s/p lumbar fusion/decompression Follows pain management ortho for inpatient pain control (7) Tobacco abuse: Encourage smoking cessation Offered nicotine patch but declined (8) DVT prophylaxis: SCDs, per Ortho Disposition: Per primary Follow-up: PCP Dr. Kiana Ortiz Patient was seen and examined in collaboration with Dr. Mitchell, please see addendum Thank you for this consultation. We will follow the patient with you during their hospital stay. You can reach a [facility] via pager @ [phone]. Supervising Physician Co-Signing Physician Notes Patient is seen and examined at bedside. Doing well today. Eager to get discharged. S/P Lumbar decompression fusion POD #2. Monitor for postop anemia, continue bowel regimen to prevent constipation, DVT prophylaxis and activity as per primary team. Blood pressure stable. Advised to monitor BP at home and discuss with her physician for further management. On exam patient is moderately built and nourished, no apparent distress, lungs are clear to auscultation, back-surgical site in dressing, abdomen soft nontender, grossly no focal neurological deficits, no pedal edema. I personally reviewed the record. Patient is interviewed and examined at bedside. Patient's care is coordinated with Janeth Boogie PA-C. Please refer to the documentation above for details of patient's presentation and for discussion of other issues. Subjective Patient was seen and examined in room 314. S/P Lumbar decompression fusion L2-3 and removal of hardware POD # 2. Feels well this morning, "I'm ready to go home." Denies f/c/s, dizziness, lightheaded, chest pain, sob, n/v/d. Tolerating oral intake. Passing gas. Pain is minimal this morning. Urinating without difficulty. Review of Systems Review of Systems: As noted per HPI, 10 systems reviewed and negative unless noted above. Physical Exam Physical Exam: Gen: WD/WN, F, lying in bed, pleasant, NAD, A&O x3 HEENT: Normocephalic, atraumatic, conjunctivae moist, sclerae anicteric, mucous membranes moist. Lung: Clear to Auscultation bilaterally, no wheezes/rales/rhonchi Heart: Regular rate, regular rhythm, no murmurs, rubs, or gallops Abdomen: Soft, NT, ND +BS x 4 Extremities: No edema Skin: Warm, no rash, negative turgor, lumbar dressing CDI, DESHAWN drain in tact draining approp : piper removed Results & Data Vital Signs (Past 12 Hours) Vital Signs Temp Pulse Pulse Resp BP Pulse Ox 06/25/18 07:45 36.7 C 66 18 94/60 L 94 06/24/18 23:41 37.1 C 75 14 95/56 L 92 06/25/18 06/25/18 Range/Units 05:46 05:46 WBC 5.71 (4.8-10.8) K/uL RBC 3.68 L (4.2-5.4) M/uL Hgb 11.3 L (12.0-16.0) g/dL Hct 32.4 L (37-47) % MCV 88.0 (80-100) fL MCH 30.7 (25-34) pg MCHC 34.9 (32-36) g/dL RDW Std Deviation 44.3 (36.4-46.3) fL RDW Coeff of Amy 13.7 (11.5-14.5) % Plt Count 219 (130-400) K/uL MPV 9.0 (7.4-10.4) fL Sodium 138 (136-145) mmol/L Potassium 4.2 (3.5-5.1) mmol/L Chloride 110 H (98-107) mmol/L Carbon Dioxide 26 (21-32) mmol/L Anion Gap 2.0 L (3-11) BUN 15 (7-18) mg/dl Creatinine 0.73 (0.6-1.2) mg/dl Est Cr Clr Drug Dosing 87.5 ml/min Est GFR ( Amer) 106.0 Est GFR (Non-Af Amer) 91.4 BUN/Creatinine Ratio 20.0 (10-20) Glucose 89 (70-99) mg/dl Calcium 8.3 L (8.5-10.1) mg/dl Short CBC 06/25/18 Range/Units 05:46 WBC 5.71 (4.8-10.8) K/uL Hgb 11.3 L (12.0-16.0) g/dL Hct 32.4 L (37-47) % Plt Count 219 (130-400) K/uL BMP 06/25/18 05:46 Sodium 138 Potassium 4.2 Chloride 110 H Carbon Dioxide 26 BUN 15 Creatinine 0.73 Glucose 89 Calcium 8.3 L
--- NOTE | 2018-06-25 14:44 | Discharge Summary ---
Date of Service June 25, 2018 Admission HPI Per Admitting Provider Presents with chronic persistent back and leg pain. After failing extensive course of nonoperative care she is here for surgical intervention. Principal Diagnosis Lumbar spinal stenosis with neurogenic claudication Discharge Data Allergies Allergy/AdvReac Type Severity Reaction Status Date / Time house dust Allergy Intermediate DUST,POLLEN-ITCHY Verified 06/23/18 18:53 EYES, RUNNY NOSE codeine AdvReac Mild G I UPSET Verified 06/23/18 18:53 cyclobenzaprine AdvReac Mild EXTREME Verified 06/23/18 18:53 DROWSY morphine AdvReac Mild GI upset Verified 06/23/18 18:53 (per PCP note) tramadol AdvReac Mild pruritis Verified 06/23/18 18:53 per PCP note Consultations 06/23/18 16:22 Consult Case Management - Discharge Planning Routine Consult Hospitalist Routine Procedures Performed Operation Date: 06/23/18 12:05 Actual Procedures p L3-S1 Hardware Removal, L2-L3 Decompression and Fusion, with spinal cord monitoring(Not Applicable) - George Cox DO Ordered Studies 06/23/18 12:05 FL fluoroscopy <1hr Routine FL lumbar spine 2-3V Routine Hospital Course (1) Lumbar stenosis with neurogenic claudication: Patient underwent lumbar decompression fusion tolerated this well was taken to the orthopedic floor postoperative. Postop pain when she was up and ambulating progressed to postop day #2 DESHAWN drain decreasing appropriately. Sub sequent discharge home. Discharge orders and instructions from the chart for further review. Total Time Total Time Spent Total Time Spent (In Minutes): 20 minutes Discharge Plan Discharge Items Patient Disposition: Home - Self-Care Reason For Visit: LUMBAR SPINAL STENOSIS W/OUT NEUROGENIC CLAUDICATI Discharge Diagnosis: lumbar stenosis Discharge Goals: Improve function Activity: Per 'Additional Instructions' section Non-emergency contact: Primary Care Provider Call non-emergency contact if: you have any medication questions Follow-up/Referrals: Kiana Ortiz MD [Primary Care Provider] - Diet: Regular Addtl Provider Instructions: ACTIVITY RECOMMENDATIONS: SELF CARE INSTRUCTIONS AFTER THORACIC/LUMBAR FUSIONS 1. You may walk to your tolerance. It is good exercise for your legs and back. Expect some back and intermittent leg aches and pains. 2. You may perform "counter-top" level activities (make a sandwich, angeli with a project, etc.). 3. No bending or lifting of more than 10 pounds or back twisting of any nature (roll like a log when turning in bed). 4. You may ride in a car for 20-30 minutes at a time. No driving until after your first visit with your doctor. 5. Frequent changes of position and restricting sitting to 30 minutes at a time will help limit the amount of back spasms and stiffness you may experience. 6. You may discontinue the use of ambulatory aids (cane, crutches, etc.) once your strength and confidence allow. 7. You may gas line repairer the shower and let water strike your incision when you arrive home at least once daily. Do not take a tub bath, sit in a hot tub or go into a swimming pool until after your first recheck in the office. SPECIAL CARE INSTRUCTIONS: VERY IMPORTANT TO READ AND REVIEW A. Your surgical incision has been closed with a cosmetic suture under the skin that will dissolve in about 6 weeks. In 14 days, you can use a pair of clean scissors and cut the suture that is left outside of the skin at the ends of your incision. 1. The small skin tapes can be removed 7 days after surgery if they have not fallen off by that point. 2. You may keep the wound open to air as much as possible to promote healing after post-op day number 5 unless told otherwise by your doctor. 3. If you think the wound looks like it is becoming infected (redness or worsening drainage) and/or you are experiencing fever, chill or worsening back pain and muscle spasms, contact the office so that we may evaluate you as soon as possible. B. Complications are uncommon, but please contact us if you have any signs or symptoms of: 1. wound infection (fever higher than 102.5 degrees F, redness, separation of wound, drainage, or increasing pain from the incision) 2. blood clots in legs (pain, swelling, redness and warmth in legs) 3. urinary tract infection (fever higher than 102.5 degrees F, burning upon urination or increased frequency of urination) 4. nerve problems (inability to walk on your toes or heels, numbness, loss of bowel or bladder control) 5. any other symptoms that concern you C. Please call the office at if you have any concerns or questions about your operation or recovery. D. No smoking! Smoking drastically decreases the chance of a solid fusion. E. Do not take any anti-inflammatory medications (Indocin, Advil, Motrin, Aspirin, Naprosyn, etc.) as these may inhibit the chance of a solid fusion. T ylenol is okay to take for pain. MANAGING PAIN AFTER SPINAL SURGERY 1. Narcotic medication is intended for short-term use and will be provided for surgical pain. Surgical pain usually lasts for a period of 4-6 weeks. Narcotic medication includes Percocet, Vicodin, Darvocet, Tylenol #3 or Lortab. 2. Longer-term pain is more appropriately treated with non-narcotic medication such as Tylenol ES. 3. Muscle spasm is not appropriately treated with narcotics. Muscle relaxers such as Soma, Flexeril or Skelaxin can be used along with Tylenol ES. 4. Remember that we all live with some "aches and pains". This is not unusual or uncommon after an injury or as we get older. a. Back pain is expected and may include muscle spasms for 4 to 6 weeks after surgery. The pain should gradually improve. If the pain worsens for no apparent reason, please contact the office. b. Intermittent leg pain may also be experienced and should not be concerned about unless it worsens for no apparent reason. If so, please contact the office. 5. We will provide appropriate medication within the normal guidelines of their prescribed use. We will also be very cautious and aware of potential abuse and extended duration of patients' medication needs. a. Pain medications are for your comfort and to assist with sleep and rest so that the tissue can heal. They are not provided in order to return to normal activity and should not be used through the day. To do so or worsening pain at night can result from ongoing tissue damage and development of tolerance to the prescribed medicine. 6. Please allow 2-3 days to process refills. Prescriptions will not be mailed but must be picked up at the office. FOLLOW UP VISIT: Keep your scheduled follow-up appointment. Any questions, please call the office at . Prescriptions: New oxycodone 5 mg Tablet 5 mg PO Q4H PRN (Reason: Pain) Qty: 30 RF: 0 Continued leflunomide 20 mg Tablet 10 mg PO QAM RF: 0 pramipexole 0.5 mg Tablet 0.5 mg PO HS PRN (Reason: RESTLESS LEG SYNDROME) RF: 0 levetiracetam [Keppra] 750 mg Tablet 750 mg PO QID RF: 0 hydroxychloroquine 200 mg Tablet 200 mg PO BID RF: 0 naproxen sodium [Aleve] 220 mg Capsule 3 tab PO BID RF: 0 potassium chloride 20 mEq Tablet Extended Release 20 meq PO BID RF: 0 No Action spironolactone 100 mg tablet 100 mg PO DAILY RF: 0 Stand-Alone Forms: [facility] Discharge Orders: Discharge Order (Routine); Ordered 06/25/18 Ordered By: George Cox Admission Data Admit Date/Time: 06/23/18 14:20 Attending Provider: George Cox Admit Provider: George Cox Primary Care Provider: Kiana Ortiz Other Providers: Gary Mitchell Service: Surgical Services
== END 2018-06-25 16:23 | disposition home or self-care (01) | DRG 454 ==
LOC: ASU 10:41 → 3E 14:20